=== PATIENT | male | born 1965 | race Caucasian/White ===

== ENCOUNTER 2021-12-26 20:09 | Emergency (ER) | payer OTHER, MEDICARE, SELFPAY ==
[2021-12-26 20:15] VITALS: BP 116/71; PULSE 98; RESP 20; TEMP 37.1; O2SAT 96
--- NOTE | 2021-12-26 23:25 | ED.SKABFB ---
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 He states that discomfort has been sufficient to prevent him from using his prosthesis. He denies any obvious injury or history of skin infection. He states that it has been draining a bit today. He denies any systemic complaints such as dizziness, weakness or lightheadedness. He is had no fever or chills and denies any chest pain or shortness of breath Related Data Previous Rx's Medication Instructions Recorded doxycycline hyclate 100 mg tablet 100 mg PO BID #20 tabs 12/26/21 Allergies Allergy/AdvReac Type Severity Reaction Status Date / Time bee pollen Allergy Verified 12/26/21 23:38 tree nut Allergy Verified 12/26/21 23:38 Review of Systems Review of Systems Narrative: GENERAL: Denies chills, fatigue, malaise, fever, sweats. HEENT: Denies sinus pain, ear pain, sore throat, difficulty swallowing, dizziness. RESPIRATORY: Denies dyspnea, cough, wheezing, hemoptysis, sputum. CARDIOVASCULAR: Denies chest pain, palpitations, orthopnea, edema, GASTROINTESTINAL: Denies nausea, vomiting, abdominal pain, diarrhea, constipation, melena. : Denies dysuria, frequency, incontinence, hematuria, urinary retention. MUSCULOSKELETAL: denies weakness, joint pain, or bony pain SKIN: See HPI NEUROLOGIC: Denies weakness, headache, numbness, change in speech, confusion, seizures, incoordination. PSYCHIATRIC: No concerning psychosocial issues. 12 point review of systems is negative except for those stated above Exam Narrative Exam Narrative: GEN: AOx3 and in mild distress EYES: Pupils are equal, round, and reactive to light and accommodation. Extraoccular muscles are intact bilaterally. There is no subconjunctival hemorrhage or exudate. CHEST: Lungs are clear to auscultation bilaterally and free of wheezes, rales, or rhonchi. Heart rate is regular rhythm, there are no murmurs, clicks, rubs, or gallops. There is no chest wall tenderness. ABD: Abdomen is soft and nontender. There is no guarding or rebound. Bowel sounds are normal in all 4 quadrants. There is no mass or organomegaly. EXT: 4 x 4 area erythema, warmth and induration with a central ulcerated region with crusted, dried drainage. Minimal fluctuance. No lymphangitis Full painless ROM of all extremities with no loss of sensation or strength. SKIN: Otherwise Warm, pink, and dry. No erythema or rash Initial Vital Signs Initial Vital Signs: Vital Signs Temperature 98.7 F 12/26/21 20:15 Pulse Rate 98 H 12/26/21 20:15 Respiratory Rate 20 12/26/21 20:15 Blood Pressure 116/71 12/26/21 20:15 Pulse Oximetry 96 12/26/21 20:15 Oxygen Delivery Method 12/26/21 20:15 Procedures Abscess I/D I&D #1: Site: lower extremity Side (if applicable): left Local Anesthetic: lidocaine 1% Amount of anesthesia used (mL): 4 Technique: incised with #11 blade Amount of fluid expressed (mL): 8 Irrigation: No Packing used?: none Course Orders Ordered: ED Orders 12/26/21 23:27 Wound Culture and Gram Stain Stat Discontinued Medications Doxycycline Hyclate (Doxycycline Hyclate 100 Mg Tablet) 100 mg PO NOW ONE Stop: 12/26/21 23:30 Last Admin: 12/26/21 23:34 Dose: 100 mg Documented By: LENKA Vital Signs Vital signs: Vital Signs - 8 hr 12/26/21 23:51 Pulse Rate 94 H Respiratory Rate 20 Blood Pressure 114/70 Pulse Oximetry 97 Oxygen Delivery Method Room Air Discharge Plan Departure Patient Disposition: Home Clinical Impression: Abscess of knee, left Instructions: DI for Skin Abscess Activity Restrictions/Additional Instructions: *You have been diagnosed with [left knee abscess with minimal cellulitis] *What to do: *Please continue to take your regular medications as directed. [ x] New medication prescriptions sent to your pharmacy: [[facility]] [ ] New medication written as a paper prescription [ ] No new medications given *Please follow up with your primary care provider in 2-3 days, call for an appointment. Let them know you were seen in the Emergency Department and that we ask that you be seen in follow up. We will electronically transmit a record of today's note if your PCP is in our system *If you do not have a primary care provider please contact the [facility] Resource line at [phone]. They will ask some questions about your medical history and help get you set up with a doctor in the community. *Return to Emergency Department if you should have any new, worsening or concerning symptoms, such as [fever greater than 101 F, shaking chills, worsening pain, persistent vomiting or other bothersome symptoms] Prescriptions: New doxycycline hyclate 100 mg tablet 100 mg PO BID Qty: 20 0RF Visit Report Forms: Patient Portal/API
[2021-12-26] MEDS: DOXYCYCLINE HYCLATE 100 MG TABLET PO (23:34)
[2021-12-26] MEDS: LIDOCAINE 2% INJ SDV 5 ML (23:37)
[2021-12-26 23:51] VITALS: BP 114/70; PULSE 94; RESP 20; O2SAT 97
== END 2021-12-26 23:52 | disposition home or self-care (01) ==
PROVIDERS: Emergency Provider Emergency Medicine
DX: L02.416 Cutaneous abscess of left lower limb (principal)
CPT/HCPCS: 10060; 87070; 87075; 87077; 87147; 87186; 87205; 99283